=== PATIENT | female | born 1975 | race Caucasian/White ===

== ENCOUNTER → 2017-04-24 | Outpatient (REF) ==
[~2017-04-24] MED LIST: KETOROLAC10 MG PO; NAPROSYN500 MG PO; NORCO 325 MG-7.1 TA1 PO; ZOFRAN4 M1 PO
[2017-04-24 09:56] LABS: THYROID STIMULATING HORMONE 2.26 uIU/mL (0.465-4.680)
== END ==
LOC: ZLAB.WCH 09:11
PROVIDERS: Internal Medicine
DX: Z01.89 Encounter for other specified special examinations (principal)

== ENCOUNTER → 2017-06-11 | Outpatient (REF) ==
[2017-06-11 17:06] LABS: THYROID STIMULATING HORMONE 1.29 uIU/mL (0.465-4.680)
== END ==
LOC: ZLAB.WCH 16:05
PROVIDERS: Internal Medicine
DX: Z01.89 Encounter for other specified special examinations (principal)

== ENCOUNTER → 2019-03-29 | Outpatient (CLI) | payer BC | LOC: MC.RAD 07:07 | DX: Z12.31 Encounter for screening mammogram for malignant neoplasm of breast (principal); N64.89 Other specified disorders of breast ==

== ENCOUNTER → 2019-04-01 | Outpatient (CLI) | payer BC | LOC: MC.RAD 13:00 | DX: Z12.31 Encounter for screening mammogram for malignant neoplasm of breast (principal); N60.02 Solitary cyst of left breast ==

== ENCOUNTER → 2023-03-20 | Outpatient (CLI) | payer OTHER | LOC: MC.RAD 08:03 | DX: Z12.31 Encounter for screening mammogram for malignant neoplasm of breast (principal) ==